=== PATIENT | male | born 1990 ===

== ENCOUNTER 2016-11-06 07:18 | Day surgery (SDC) | payer SELFPAY ==
[2016-11-06 07:53] VITALS: BMI 35.3
[2016-11-06] MEDS ORDERED: cefTRIAXone (Rocephin) 1 gm Inj ONE (08:05)
[2016-11-06] MEDS ORDERED: Bupivacaine 0.5% Inj(30mL) ONE (08:05)
[2016-11-06] MEDS ORDERED: Lidocaine 1% Inj (20ml) ONE (08:05)
[2016-11-06] MEDS ORDERED: Propofol 10 mg/ml Inj (20 ML) ONE (09:08)
[2016-11-06] MEDS ORDERED: Lidocaine Hydrochloride 5 ML INJ ONE (09:08)
[2016-11-06] MEDS ORDERED: Lidocaine 4% (Laryng-O-Jet) Kit MM ONE (09:10)
[2016-11-06] MEDS ORDERED: Lactated Ringer's 1,000 ML IV ONE ×2 (11:14→11:42)
[2016-11-06] MEDS ORDERED: Midazolam 2 MG/2 ML VIAL ONE (11:16)
[2016-11-06] MEDS ORDERED: Succinylcholine 200 mg/10 ml Inj IV ONE (11:16)
[2016-11-06] MEDS ORDERED: cefTRIAXone (Rocephin) 1 gm Inj IM ONE (11:20)
[2016-11-06] MEDS ORDERED: Lidocaine 1% Inj (20ml) IM ONE (11:27)
[2016-11-06] MEDS ORDERED: Dexamethasone 4 mg/1 ml ONE (11:37)
[2016-11-06] MEDS ORDERED: Desflurane Inhalation Anesthetic Liq (240 ml) ONE (11:44)
[2016-11-06] MEDS ORDERED: Lactated Ringer's 1,000 ML IV SCH (12:00)
[2016-11-06] MEDS ORDERED: HYDROmorphone 0.5 mg/0.5 ml ISec IVP PRN (12:00)
[2016-11-06 14:25] VITALS: O2SAT 98
[2016-11-06 14:27] VITALS: BP 134/86; PULSE 70; RESP 18; TEMP 97.6
--- NOTE | 2016-11-22 17:33 | OP ---
PROCEDURE DATE: 11/06/2016 PREOPERATIVE DIAGNOSIS: Phimosis. POSTOPERATIVE DIAGNOSIS: Phimosis. PROCEDURE PERFORMED: Circumcision. DESCRIPTION OF PROCEDURE: Under general anesthesia, the patient was placed on the operating table in a supine position. The area of the groin was draped and prepped in a sterile manner. Using circumferential incisions, I demarcated and excised the excess foreskin. At this time, I inserted 10 mL of 1% lidocaine in the base of the penis for local anesthetic effect. Once the foreskin was removed, I then cauterized some small active bleeders that were noted subcutaneously and then I reapproximated the skin edges using multiple interrupted 4-0 chromic sutures. Once this was done, a compressive dressing was placed over the wound site. Blood loss was minimal. The patient then was taken from the operating room in good condition. Oscar Phillips MD
--- NOTE | 2016-11-23 05:48 | DS ---
DATE OF DISCHARGE: 11/06/2016 This patient came in for elective circumcision on 11/06/2016. He underwent an uneventful procedure. He was discharged home on the same day, advised to put ice packs onto the wound site, and prescriptions for oral antibiotics and analgesics were given. The patient then was discharged and will follow up in my office within 3 days of the discharge. Oscar Phillips MD
== END 2016-11-06 15:10 | disposition home or self-care (01) ==
LOC: H.OPSURG 07:18
PROVIDERS: ATTEND Urology
DX: N47.1 Phimosis (principal); E66.9 Obesity, unspecified
CPT/HCPCS: 54161; 88304; J0330; J0696; J1100; J1170; J1885; J2250; J2405; J2704; J2765; J3010; J7120